=== PATIENT | male | born 1985 | race Caucasian/White ===

== ENCOUNTER 2016-06-08 08:52 | Emergency (ER) | payer SELFPAY ==
[~2016-06-08] VITALS: Ht 175.3 cm; Wt 75.0 kg
[~2016-06-08 08:52] MED LIST: LORT5TAB PO; Z.0.NO CURRENT MEDS; ZOVI800T13 PO
[2016-06-08 08:53] VITALS: BP 153/87; PULSE 108; RESP 16; TEMP 97.8; O2SAT 97
--- NOTE | 2016-06-08 09:42 | PD ---
HPI Chief Complaint: Laceration/Skin Injury Time Seen by Provider: 09:38 Travel History International Travel<30 days: No Contact w/Intl Traveler<30days: No Traveled to known affect area: No History of Present Illness HPI 30-year-old male presents to the emergency department for evaluation of right hand laceration that occurred last night about 10 PM, approximately 12 hours ago. The patient states that he was carrying the trash to the dumpster when he went to throw the bag he accidentally cut his hand on a piece of glass. States that he is able to move everything without difficulty and denies any numbness or tingling. Unsure of last tetanus vaccination. No other complaints. PFSH Past Medical History Blood Disorders: No Bipolar Disorder: Yes (DIAGNOSED AT AGE 11, IS NOT ON ANY MEDS) Cancer: No Endocrine: No Genitourinary: No Immune Disorder: No Musculoskeletal: No Neurologic: No Psychiatric: Yes (BIPOLAR) Reproductive: No Immunizations Current: Yes Social History Alcohol Use: Yes (MAYBE ONCE A MONTH) Tobacco Use: Yes (05/09 PPD) Substance Use: Yes (MARIJUANA, LAST USED 28 DAYS AGO) Allergies-Medications (Allergen,Severity, Reaction): Coded Allergies: Tramadol (Verified Adverse Reaction, Severe, "vomit", 06/08/16) Reported Meds & Prescriptions Reported Meds & Active Scripts Active Keflex (Cephalexin) 500 Mg Cap 500 Mg PO Q12H 7 Days Review of Systems Except as stated in HPI: all other systems reviewed are Neg Physical Exam Narrative GENERAL: Well-nourished and well-developed pleasant female patient in no acute distress who is nontoxic appearing. SKIN: Warm and dry. HEAD: Normocephalic and atraumatic. EYES: No injection, drainage, or hyphema noted. PERRLA. EOMI. NECK: Supple and the trachea is midline. CARDIOVASCULAR: Regular rate and rhythm. RESPIRATORY: Breath sounds are equal bilaterally with no accessory muscle use, wheezing, rhonchi, or crackles. EXTREMITY: Dorsal aspect of the right hand over fifth MCP 2 cm laceration. I am able to obtain a bloodless view of the base of the laceration which does not show any foreign body. Full range of motion in all joints. No joint swelling/ injury. Lumbrical and interossei function intact. Normal opposition of thumb. Distal extremity neurovascularly intact with intact two point discrimination. NEUROLOGICAL: Awake, alert, and oriented. Normal speech and gait. Cranial nerves are grossly intact. Data Data Last Documented VS Vital Signs Date Time Temp Pulse Resp B/P Pulse Ox O2 Delivery O2 Flow Rate FiO2 06/08/16 08:53 97.8 108 16 153/87 97 Orders Tetanus/Diphtheria Tox Adult (Tetanus/Di (06/08/16 09:45) Lidocai-Epi 1%-1:100,000 Inj (Xylocaine- (06/08/16 09:45) MDM Medical Decision Making Medical Screen Exam Complete: Yes Emergency Medical Condition: Yes Differential Diagnosis Laceration versus superficial versus deep versus avulsion Narrative Course 30-year-old male presents to the emergency department for evaluation of right hand laceration that occurred last night on a piece of glass. Patient is afebrile, vital signs are stable. Patient's right hand and fingers are all neurovascularly intact. Unable to see the base of the laceration and there is no foreign body material. Laceration repair is performed, see procedure narrative. Patient will be discharged with Keflex prophylactically. Discussed supportive care and when to return to the emergency Department. Advised follow- up with his PCP. Patient verbalizes understanding and agreement with treatment plan. Procedures Procedure Narrative LACERATION LOCATION: Right hand dorsal aspect LENGTH: 2.5 cm NUMBER OF STITCHES/SARAH: 7 sutures REPAIR: The area of the laceration was prepped with Betadine and sterilely draped. The laceration was infiltrated with 1% lidocaine with epinephrine. The wound was copiously irrigated and explored without evidence of foreign body , tendon injury or neurovascular injury. The wound was closed using 4. 0 Ethilon. This was a single layer repair. Antibiotic ointment and a sterile dressing was applied. The patient was advised to keep the dressing clean and dry. Patient tolerated the procedure well. Diagnosis Primary Impression: Hand laceration Qualified Code: S61.411A - Hand laceration, right, initial encounter Referrals: Primary Care Physician Patient Instructions: General Instructions, Laceration (ED) Additional Instructions: Keep wound clean and dry. Wash gently with soap and water. Apply topical antibiotic ointment twice daily. Have sutures removed in 7 days. Take medications as prescribed with food and a full glass of water. Follow-up with your Primary Care Physician. Return to the ED for any acute worsening of symptoms. Med/Other Pt SpecificInfo: Prescription(s) given Scripts Cephalexin (Keflex)500 Mg [id number] Mg PO Q12H 7 Days Ref 0 Prov:Cam Mckeon MD 06/08/16 Disposition: 01 DISCHARGE HOME Condition: Stable Winsome Mazariegos Jun 08, 2016 09:42
[2016-06-08] MEDS ORDERED: LIDOCAINE 1%/EPINEPHrine 1:100,000 SOLN 20 ML VIAL INFIL ONE (09:45)
[2016-06-08] MEDS ORDERED: TETANUS/DIPHTHERIA TOXOID ADULT 0.5 ML VIAL IM ONE (09:45)
[2016-06-08] MEDS ORDERED: CEPH-460 PO (10:45)
== END 2016-06-08 10:56 | disposition home or self-care (01) ==
LOC: NEPB 08:52
DX: S61.411A Laceration without foreign body of right hand, initial encounter (principal); Z23 Encounter for immunization; F17.210 Nicotine dependence, cigarettes, uncomplicated; F12.10 Cannabis abuse, uncomplicated; W25.XXXA Contact with sharp glass, initial encounter; Y93.89 Activity, other specified; Y92.89 Other specified places as the place of occurrence of the external cause; Y99.8 Other external cause status
CPT/HCPCS: 12001; 90471; 90714